=== PATIENT | male | born 1945 | race Caucasian/White ===

== ENCOUNTER 2017-01-06 06:05 | Day surgery (SDC) | payer MEDICARE, OTHER ==
[2017-01-04 16:01] VITALS: BMI 24.4
[2017-01-06] MEDS ORDERED: LIDOCAINE HCL 1%, 10 MG/ML (20ML VIAL) ONE (07:20)
[2017-01-06] MEDS ORDERED: BUPIVACAINE HCL/PF 0.5% (5MG/ML) 10 ML VIAL ONE (07:20)
[2017-01-06] MEDS ORDERED: PROPOFOL 20 ML ONE (07:56)
[2017-01-06] MEDS ORDERED: MIDAZOLAM HCL 2 MG/2 ML SINGLE DOSE VIAL ONE (07:56)
[2017-01-06] MEDS ORDERED: ceFAZolin SODIUM 1 GM VIAL ONE (08:30)
[2017-01-06] MEDS ORDERED: ceFAZolin SODIUM 1 GM VIAL IVPB ONE (08:35)
[2017-01-06] MEDS ORDERED: LIDOCAINE HCL 1%, 10 MG/ML (20ML VIAL) IJ ONE (08:40)
[2017-01-06] MEDS ORDERED: BUPIVACAINE HCL/PF 0.5% (5MG/ML) 10 ML VIAL IJ ONE (08:40)
--- NOTE | 2017-01-06 08:42 | HP ---
Satellite [facility] - Chief Complaint Chief Complaint: right hand mass - Past Medical History Allergies/Adverse Reactions: Allergies Allergy/AdvReac Type Severity Reaction Status Date / Time No Known Drug Allergies Allergy Verified 01/06/17 06:43 - Current Medications Current Medications: Home Medications Medication Instructions Recorded Alprazolam [Xanax] 2 mg PO HS 08/16/13 Aspirin 81 mg PO HS 08/16/13 Fenofibrate [Lipofen] 145 mg PO HS 08/16/13 Olmesartan Medoxomil [Benicar -] 40 mg PO HS 08/16/13 Rosuvastatin Calcium [Crestor] 40 mg PO HS 08/16/13 Zolpidem Tartrate [Ambien] 10 mg PO HS 08/16/13 Glimepiride 4 mg PO DAILY 03/19/15 Metoprolol Succinate [Toprol XL -] 50 mg PO DAILY 03/19/15 Liraglutide [Victoza -] 1.8 mg SQ ACDIN 03/20/15 Insulin Degludec [Tresiba 20 unit SQ HS 01/04/17 Flextouch U-100] Meloxicam [Mobic] 15 mg PO PRN PRN 01/04/17 Hydrocodone/Acetaminophen [Lavallette 1 each PO Q6H PRN #30 tablet MDD 4 01/06/17 5-325 Tablet] Satellite Physical Exam - Physical Examination Vital Signs: Vital Signs Period Temp Pulse Resp BP Sys/Welch Pulse Ox Last 24 Hr 97.8 F 90 20 135/87 99 General Appearance: Well Nourished, Well Developed, Alert & Oriented x3 ENT: Clear Lung: Normal air movement Heart: Regular rate & rhythm Extremities: Other (right hand- + mass, nvi) Neurological: Intact, Alert, Oriented Satellite Impression/Plan - Impression/Plan Impression: right hand mass Operative Procedure: right hand mass excision Date to be Performed: 01/06/17
--- NOTE | 2017-01-06 09:02 | OP ---
Operative Note - Note: Operative Date: 01/06/17 Pre-Operative Diagnosis: right hand mass Operation: right hand mass excision Post-Operative Diagnosis: Same as Pre-op Surgeon: Damien Jimenez Anesthesiologist/TARGET MAN: Silvino Nayak Anesthesia: Local, MAC Specimens Removed: mass right hand, ganglion cyst Estimated Blood Loss (mls): 0 Drains, Volume Out (mls): 0 Blood Volume Replaced (mls): 0 Fluid Volume Replaced (mls): 300 Operative Report Dictated: Yes
[2017-01-06] MEDS ORDERED: ACETAMINOPHEN 325 MG TABLET (FP) PO PRN (09:06)
[2017-01-06] MEDS ORDERED: ONDANSETRON 4 MG/2 ML VIAL IVPUSH PRN (09:06)
[2017-01-06] MEDS ORDERED: LACTATED RINGERS SOLUTION 1,000 ML IV SCH (09:15)
[2017-01-06 09:21] VITALS: TEMP 97.7
--- NOTE | 2017-01-06 09:37 | OP ---
DATE OF OPERATION: 01/06/2017 PREOPERATIVE DIAGNOSIS: Right hand mass. POSTOPERATIVE DIAGNOSIS: Right hand mass. PROCEDURE: Right hand mass excision. ANESTHESIOLOGIST: Silvino Nayak MD ANESTHESIA: MAC, local injection of 8 mL 0.50% Marcaine and 1% lidocaine mix. DRAINS: None. COMPLICATIONS: None. BLOOD LOSS: None. BLOOD GIVEN: None. FLUID REPLACEMENT: 300 mL SPECIMEN: Mass, right hand. INDICATION FOR PROCEDURE: This patient is a 71-year-old male with a preoperative diagnosis of a right hand mass. After understanding the potential risks, complications, alternatives, and benefits of surgery versus nonsurgical treatment, the patient elected to undergo this procedure. He understands that there is a chance of recurrence even after surgical excision. There is a chance of temporary or permanent paresthesias. DESCRIPTION OF PROCEDURE: The patient was brought to the operating room. Peripheral IV was placed. IV sedation given; 1 g of IV Ancef was given. MAC anesthesia was induced. The right upper extremity was prepped and draped in sterile fashion. A longitudinal incision marked out in the dorsal second web space with a marking pen, and 8 mL of 0.50% Marcaine and 1% lidocaine mix were injected in and around the surgical area. The right upper extremity was then elevated, exsanguinated with an Esmarch bandage. Tourniquet inflated to 250 mmHg. A longitudinal incision was made with a number-15 scalpel blade. Subcutaneous hemostasis achieved with the bipolar cautery. Dissection done with a small, curved-tipped iris scissors, exposing a multiloculated ganglion cyst at the ulnar aspect of the extensor tendon in the dorsal second web space between the second and third metacarpal head. Circumferential dissection was done. I was able to find and locate its stalk. I decapitated it at its base, cauterized its base. Area was copiously irrigated and washed out. No other abnormal tissue was seen or felt; therefore, closure was done with 4-0 undyed Vicryl in the deep dermal layer, and final skin reapproximation was done with a running subcuticular 4-0 Biosyn stitch. It was then washed and dried and covered with Steri-Strips, 4 x 4's, Webril, and Coban. The tourniquet was taken down after total tourniquet time of 11 minutes. There were no complications during the case. The patient tolerated the procedure quite well and was brought to the ambulatory recovery room in stable condition. Andreina [id number]
[2017-01-06 11:22] VITALS: BP 146/89; PULSE 80
--- NOTE | 2017-01-07 17:12 | PATH ---
Surgical Pathology Report Patient Name: DEMETRI MORALES [facility]. Rec. #: [id number] /Age/Gender: 1945 (Age: 71) / M Account: [id number] Location: [facility] SURGICAL Taken: 01/06/2017 Received: 01/06/2017 Reported: 01/07/2017 Physicians: Damein Jimenez M.D. Specimen(s) Received MASS OF RIGHT HAND Clinical History Mass right hand (between index finger) Final Diagnosis SOFT TISSUE, RIGHT HAND, EXCISION: GANGLION CYST. Electronically Signed Sanjiv Jarrett M.D. Gross Description Received in formalin labeled "mass right hand," is a 1.0 x 0.7 x 0.2 cm nelson, irregular portion of soft tissue. The specimen is submitted in toto in one cassette. 01/06/201701/06/2017
== END 2017-01-06 11:22 | disposition home or self-care (01) ==
LOC: JASU-SURG 06:05
PROVIDERS: ATTEND Orthopaedic Surgery
PROC: 0LB70ZZ Excision of Right Hand Tendon, Open Approach (ICD-10-PCS; principal; 2017-01-06 08:00)
DX: M67.441 Ganglion, right hand (principal)
CPT/HCPCS: 88304-TC; 94760

== ENCOUNTER 2020-01-24 04:28 | Day surgery (SDC) | payer OTHER ==
[2020-01-23 17:06] VITALS: BMI 24.1
[2020-01-24] MEDS ORDERED: LIDOCAINE HCL 1%, 10 MG/ML (20ML VIAL) ONE (07:15)
[2020-01-24] MEDS ORDERED: HEPARIN NA (PORCINE) 5,000 UNITS/ML 1ML VIAL ONE ×2 (07:15→07:54)
[2020-01-24] MEDS ORDERED: PROPOFOL 20 ML ONE (07:53)
[2020-01-24] MEDS ORDERED: LIDOCAINE HCL/PF 2% SDV 5ML VIAL ONE (07:53)
[2020-01-24] MEDS ORDERED: MIDAZOLAM HCL 2 MG/2 ML SINGLE DOSE VIAL ONE ×2 (07:53)
--- NOTE | 2020-01-24 08:13 | HP ---
Admitting History and Physical - Admission Chief Complaint: Pt with left great toe discoloration for 1 month. 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 Pt then went to [facility] where there was a CTA done. But no intervention was done on the patient. Pt was DC home on antibiotics. Pt came to my office with toe discoloration on tuesday History Source: Patient Limitations to Obtaining History: No Limitations - Smoking History Smoking history: Current every day smoker Have you smoked in the past 12 months: Yes Aproximately how many cigarettes per day: 8 If you are a former smoker, when did you quit?: 06/12 - Alcohol/Substance Use Hx Alcohol Use: No Home Medications - Allergies Allergies/Adverse Reactions: Allergies Allergy/AdvReac Type Severity Reaction Status Date / Time No Known Drug Allergies Allergy Verified 01/24/20 06:49 - Home Medications Home Medications: Ambulatory Orders Aspirin 81 mg PO HS 08/16/13 Fenofibrate [Lipofen] 145 mg PO HS 08/16/13 Olmesartan Medoxomil [Benicar -] 40 mg PO HS 08/16/13 Rosuvastatin Calcium [Crestor] 40 mg PO HS 08/16/13 Zolpidem Tartrate [Ambien] 10 mg PO HS 08/16/13 Glimepiride 4 mg PO DAILY 03/19/15 Metoprolol Succinate [Toprol XL -] 50 mg PO DAILY 03/19/15 Meloxicam [Mobic] 15 mg PO PRN PRN 01/04/17 Ciprofloxacin HCl [Cipro] 500 mg PO DAILY 01/21/20 Insulin Glargine,Hum.rec.anlog [Lantus Solostar] 36 unit SQ HS 01/23/20 Naproxen [Naprosyn -] 500 mg PO BID 01/23/20 Review of Systems - Review of Systems Constitutional: reports: No Symptoms Eyes: reports: No Symptoms HENT: reports: No Symptoms Neck: reports: No Symptoms Cardiovascular: reports: No Symptoms Respiratory: reports: No Symptoms Gastrointestinal: reports: No Symptoms Genitourinary: reports: No Symptoms Breasts: reports: No Symptoms Reported Musculoskeletal: reports: No Symptoms Integumentary: reports: No Symptoms Neurological: reports: No Symptoms Endocrine: reports: No Symptoms Hematology/Lymphatic: reports: No Symptoms Psychiatric: reports: No Symptoms Physical Examination Vital Signs: Vital Signs Temperature 97.1 F L 01/24/20 06:49 Pulse Rate 75 01/24/20 06:49 Respiratory Rate 18 01/24/20 06:49 Blood Pressure 153/91 01/24/20 06:49 O2 Sat by Pulse Oximetry (%) 100 01/24/20 06:49 Constitutional: Yes: Well Nourished, No Distress, Calm Eyes: Yes: WNL, Conjunctiva Clear, EOM Intact HENT: Yes: WNL, Atraumatic, Normocephalic Neck: Yes: WNL, Supple, Trachea Midline Cardiovascular: Yes: WNL, Regular Rate and Rhythm Respiratory: Yes: WNL, Regular, CTA Bilaterally Gastrointestinal: Yes: WNL, Normal Bowel Sounds Musculoskeletal: Yes: WNL Extremities: Yes: WNL Edema: No Peripheral Pulses WNL: No Integumentary: Yes: WNL Neurological: Yes: WNL, Alert, Oriented ...Motor Strength: WNL Psychiatric: Yes: WNL Problem List - Problems (1) Gangrene of toe Assessment/Plan: Pt for angiogram today Davin Dupont DO Problems reviewed: Yes Code(s): I96 - GANGRENE, NOT ELSEWHERE CLASSIFIED
[2020-01-24] MEDS ORDERED: ceFAZolin SODIUM 1 GM VIAL ONE (08:25)
[2020-01-24] MEDS ORDERED: ceFAZolin SODIUM 1 GM VIAL IVPB ONE (08:30)
[2020-01-24] MEDS ORDERED: LIDOCAINE HCL 1%, 10 MG/ML (20ML VIAL) INF ONE (08:37)
[2020-01-24] MEDS ORDERED: PHENYLEPHRINE HCL 10 MG/1 ML SINGLE DOSE VIAL ONE (08:42)
[2020-01-24] MEDS ORDERED: ONDANSETRON 4 MG/2 ML VIAL IVPUSH PRN (09:26)
[2020-01-24] MEDS ORDERED: oxyCODONE HCL 5 MG TABLET PO PRN (09:26)
[2020-01-24] MEDS ORDERED: IBUPROFEN 800 MG/8 ML IJ IVPB PRN (09:26)
[2020-01-24] MEDS ORDERED: LACTATED RINGERS SOLUTION 1,000 ML IV SCH (09:30)
--- NOTE | 2020-01-24 09:35 | OP ---
Operative Note - Note: Operative Date: 01/24/20 Pre-Operative Diagnosis: left great toe ischemia Operation: Aortogram, Left lower extremity angiogram, SFA atherectomy , angioplasty with stent placement. Findings: SFA occlusion for 6cm in adductor canal Post-Operative Diagnosis: Same as Pre-op Surgeon: Davin Dupont Anesthesia: General Estimated Blood Loss (mls): 50 Operative Report Dictated: Yes
[2020-01-24] MEDS ORDERED: CLOPIDOGREL BISULFATE 75 MG TABLET (FP) PO ONE ×2 (09:37→09:50)
[2020-01-24 11:35] VITALS: TEMP 97.1
[2020-01-24 11:57] VITALS: BP 152/87; PULSE 62
--- NOTE | 2020-01-29 13:32 | OP ---
DATE OF OPERATION: 01/24/2020 PREOPERATIVE DIAGNOSIS: Right great toe gangrene. POSTOPERATIVE DIAGNOSIS: Right great toe gangrene. PROCEDURE: Aortogram, left lower extremity angiogram, superficial femoral artery atherectomy, superficial femoral artery angioplasty, superficial femoral artery stent placement. SURGEON: Davin Canales DO ANESTHESIA: Fractional. BLOOD LOSS: 50 mL. INDICATIONS: The patient is a 74-year-old male that comes in with a 1-1/2 to 2-month history of cyanotic left great toe. 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 He then was admitted at [facility] where he received IV antibiotics for a week. At [facility] he had a CTA performed showing that he has a left SFA mid to distal occlusion. He was then discharged from [facility] with no intervention done on his circulation, and he was sent to my office. When he came to my office, we looked at his CTA from [facility], and we then booked him for his operation after he got medically cleared from a medicine and cardiology standpoint in 3 days. Patient was COVID-19 negative. Patient came into the ambulatory surgery. Patient was consented for the procedure, understanding all risks, benefits, and alternatives; understanding the risks of bleeding, infection, clot formation, and possible loss of his toe if his circulation does not get better. Patient is a current smoker. It was well advised to the patient that a lot of his disease process is coming from the fact that he is an avid smoker, smokes almost a pack a day, and he has been doing it for a very long time. Patient was advised that after intervention if he continues to smoke, whatever intervention we do will close and not stay open. DESCRIPTION OF PROCEDURE: Patient was brought to the operating room, laid on operating table in supine manner. The area of the right and left groins was prepped and draped in a sterile surgical manner. We then injected 10 mL of lidocaine 1% over the right common femoral artery. We then used our Micropuncture needle and punctured the right common femoral artery. Micropuncture wire was inserted. Micropuncture sheath was inserted, and traditional 5-Nigerien sheath was inserted. We then placed a 0.035 floppy guidewire up to the aorta, followed by Omniflush catheter. We then shot an aortogram via hand injection showing that the aorta and iliac arteries were . We then used our 0.035 floppy guidewire and went up and over to the left common femoral artery. An Omniflush catheter followed. We then shot an angiogram of the left lower extremity by hand injection showing that the common femoral artery, the profunda, and the proximal SFA were patent, but the mid to distal SFA had a 5- to 6-cm occlusion. Popliteal artery was patent, and patient had 2-vessel runoff into the foot, but mainly his posterior tibial artery was his main runoff. At this point, we placed 0.035 stiff guidewire into the SFA, removed our Omniflush catheter. We placed a 6 x 45 crossover sheath, and 5000 units of IV heparin was administered to the patient. We then went ahead and used a Quick-Cross catheter and our stiff wire, and we were able to cross the occlusion and place the wire down into the peroneal artery. We then went ahead and exchanged the wire for a Viper Wire. We then used atherectomy and performed atherectomy of the occluded SFA on low, medium, and high. Completion angiogram now showed that there was a tract that was open now in the SFA. We then went ahead and used a 5 x 8 Ultraverse balloon and performed angioplasty of the SFA. Completion angiogram showed that the SFA was now patent but still had recoil. At this point we used a 6 x 8 LifeStent, and that was deployed in the occluded SFA, and we then ballooned that in place using a 5 x 8 balloon. Completion angiogram now showed that the SFA was patent. There was no recoil. There was good flow, and there was good flow down to the foot, with the PT being the main artery supplying the foot. 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 At this point we brought our sheath up and over. StarClose device was successfully deployed in the right common femoral artery. Pressure was held for 5 minutes. After there was no bleeding, the area was wet and dried, and Dermabond was placed. Patient was transferred to the PACU in stable condition. Patient had a strong Dopplerable PT pulse. DAVIN CANALES DO [id number]
== END 2020-01-24 12:30 | disposition home or self-care (01) ==
LOC: JASU-SURG 04:28
PROVIDERS: ATTEND Surgery Vascular Surgery
PROC: 047K3DZ Dilation of Right Femoral Artery with Intraluminal Device, Percutaneous Approach (ICD-10-PCS; principal; 2020-01-24 08:00)
DX: I70.261 Atherosclerosis of native arteries of extremities with gangrene, right leg (principal); I10 Essential (primary) hypertension; E11.9 Type 2 diabetes mellitus without complications; Z79.4 Long term (current) use of insulin
CPT/HCPCS: 37227; C1877; 76000-TC-FY; 82962; 94760; J1644